=== PATIENT | female | born 1950 | race American Indian/Alaskan Native ===

== ENCOUNTER 2016-11-08 12:59 | Outpatient (CLI) | payer OTHER ==
--- NOTE | 2016-11-09 09:14 | Mammography Report ---
BILATERAL MAMMOGRAM with CAD: HISTORY: Cancer screening. Comparison study is dated September 23, 2013. FINDINGS: The breast tissue is heterogeneously dense, which could obscure detection of small masses (approximately 50%-75% glandular). No mass, distortion, suspicious calcification, or skin change is seen. IMPRESSION: Negative mammogram. There is no mammographic evidence of malignancy. RECOMMENDATION: Follow-up per ACS guidelines. BI-RADS CATEGORY: 1 = Negative ACR BI-RADS MAMMOGRAPHIC CODES: 0 = Needs additional imaging evaluation; 1 = Negative; 2 = Benign; 3 = Probably benign; 4 = Suspicious; 5 = Malignant; 6 = Known biopsy-proven malignancy COMMENT: 1. Dense breast tissue, i.e., adenosis, fibrocystic changes, etc., may obscure an underlying neoplasm. 2. Approximately 10% of cancers are not detected with mammography. 3. A negative mammography report should not delay biopsy if a clinically suspicious mass is present. COMMENT: Patient follow-up letters are generated in [employer].
== END 2016-11-08 13:00 | disposition home or self-care (01) ==
LOC: MAMMO 12:59
PROVIDERS: ATTEND Internal Medicine
DX: Z12.31 Encounter for screening mammogram for malignant neoplasm of breast (principal)
CPT/HCPCS: 77067; G0202

== ENCOUNTER 2017-07-14 12:40 | Emergency (ER) | payer OTHER ==
[2017-07-14 14:32] LABS: Basophils % (Auto) 0.4 % (0.0-1.8); Eosinophils % (Auto) 1.1 % (0.0-4.3); Mean Corpuscular HGB Conc 32 % (30-34); Mean Corpuscular Hemoglobin 28 pg (28-32); Mean Corpuscular Volume 86 fl (79-97); Platelet Count 294 K/mm3 (140-440); Red Cell Distribution Width 13.4 % (13.2-15.2); White Blood Count 6.1 K/mm3 (4.5-11.0)
[2017-07-14 14:48] LABS: Bacteria,Urine 1+ /HPF (Negative); Bilirubin,Urine NEG (Negative); Blood,Urine SM (Negative); Ketones,Urine NEG (Negative); Leukocyte Esterase,Urine LG (Negative); Mucus,Urine 2+ /HPF; Nitrite,Urine NEG (Negative); Protein,Urine <15 mg/dL mg/dL (Negative); Urobilinogen,Urine < 2.0 mg/dL (<2.0)
[2017-07-14 14:52] LABS: Anion Gap 15 mmol/L; BUN/Creatinine Ratio 29; Blood Urea Nitrogen 20 mg/dL (7-17); Calcium 9.2 mg/dL (8.4-10.2); Carbon Dioxide 27 mmol/L (22-30); Chloride 105.7 mmol/L (98-107); Glucose 105 mg/dL (65-100); Potassium 3.8 mmol/L (3.6-5.0); Sodium 144 mmol/L (137-145)
[2017-07-14 14:56] LABS: Creatine Kinase 36 units/L (30-135); Lipase 30 units/L (13-60)
[2017-07-14 15:01] LABS: Creatine Kinase MB < 1.0 ng/mL (0.0-4.0)
[2017-07-15] MEDS ORDERED: ZOFRAN IV ONE (06:18)
[2017-07-15] MEDS ORDERED: NACL 0.9% 1000 ML 1,000 ML IV ONE (06:18)
--- NOTE | 2017-07-15 06:21 | Emergency Department Report ---
HPI - General Chief Complaint: Nausea/Vomiting/Diarrhea Time Seen by Provider: 07/15/17 06:10 - HPI HPI: Room 26 The patient is 67-year-old female presenting with a chief complaint of nausea and vomiting. The patient states for the past and she's had intractable nausea and vomiting and has been unable to keep anything down. Patient states for the past 4 days she's had some diarrhea. The patient complains of abdominal pain which she is actually vomiting. Patient claims to feel weak. Patient denies history of fever Location: Gastrointestinal system Duration: 10 days Quality: Vomiting Severity: Moderate Modifying factors: [see above] Context: [see above] Mode of transportation: Unknown ED Past Medical Hx - Past Medical History Hx Hypertension: Yes Hx Diabetes: Yes Hx Arthritis: Yes Additional medical history: ULCERS - Surgical History Additional Surgical History: HERNIA REPAIR. FIBROIDS REMOVED - Family History Family history: no significant - Social History Smoking Status: Never Smoker Substance Use Type: None - Medications Home Medications: Home Medications Medication Instructions Recorded Confirmed Last Taken Type Azithromycin [Zithromax Z-LANETTE] 250 mg PO DAILY #6 tablet 08/26/14 Unknown Rx Ondansetron [Zofran ODT TAB] 8 mg PO Q8HR #20 tab.rapdis 07/15/17 Unknown Rx Sulfamethoxazole/Trimethoprim 1 each PO BID #6 tablet 07/15/17 Unknown Rx [Bactrim DS TAB] ED Review of Systems ROS: Stated complaint: VOMITING, WEAK Other details as noted in HPI Comment: All other systems reviewed and negative Constitutional: denies: chills, fever Eyes: denies: eye pain, eye discharge, vision change ENT: denies: ear pain, throat pain Respiratory: denies: cough, shortness of breath, wheezing Cardiovascular: denies: chest pain, palpitations Endocrine: no symptoms reported Gastrointestinal: abdominal pain, nausea, vomiting, diarrhea Genitourinary: denies: urgency, dysuria, discharge Musculoskeletal: denies: back pain, joint swelling, arthralgia Skin: denies: rash, lesions Neurological: denies: headache, weakness, paresthesias Psychiatric: denies: anxiety, depression Hematological/Lymphatic: denies: easy bleeding, easy bruising Physical Exam - Physical Exam Vital Signs: Vital Signs 07/14/17 07/14/17 07/14/17 14:00 18:40 20:17 Temperature 98.6 F 98 F 98.1 F Pulse Rate 78 69 68 Respiratory 20 16 18 Rate Blood Pressure 154/91 136/77 146/84 O2 Sat by Pulse 99 99 100 Oximetry Physical Exam: GENERAL: The patient is well-developed well-nourished female lying on stretcher not appearing to be in acute distress. [] HEENT: Normocephalic. Atraumatic. Extraocular motions are intact. Patient has moist mucous membranes. NECK: Supple. Trachea midline CHEST/LUNGS: Clear to auscultation. There is no respiratory distress noted. HEART/CARDIOVASCULAR: Regular. There is no tachycardia. There is no gallop rub or murmur. ABDOMEN: Abdomen is soft, nontender. Patient has normal bowel sounds. There is no abdominal distention. SKIN: There is no rash. There is no edema. There is no diaphoresis. NEURO: The patient is awake, alert, and oriented. The patient is cooperative. The patient has normal speech MUSCULOSKELETAL: There is no evidence of acute injury. ED Course Vital Signs 07/14/17 07/14/17 07/14/17 14:00 18:40 20:17 Temperature 98.6 F 98 F 98.1 F Pulse Rate 78 69 68 Respiratory 20 16 18 Rate Blood Pressure 154/91 136/77 146/84 O2 Sat by Pulse 99 99 100 Oximetry - Reevaluation(s) Reevaluation #1: 07/15/17 08:42 Patient tolerating po ED Medical Decision Making - Lab Data Result diagrams: 07/14/17 14:21 07/14/17 14:21 Laboratory Tests 07/14/17 07/14/17 07/14/17 14:03 14:21 14:21 WBC 6.1 RBC 4.30 Hgb 12.0 Hct 37.0 MCV 86 MCH 28 MCHC 32 RDW 13.4 Plt Count 294 Lymph % (Auto) 29.9 [place] % (Auto) 9.9 H Eos % (Auto) 1.1 Baso % (Auto) 0.4 Lymph # 1.8 [place] # 0.6 Eos # 0.1 Baso # 0.0 Seg Neutrophils % 58.7 Seg Neutrophils # 3.6 Sodium 144 Potassium 3.8 Chloride 105.7 Carbon Dioxide 27 Anion Gap 15 BUN 20 H Creatinine 0.7 Estimated GFR > 60 BUN/Creatinine Ratio 29 Glucose 105 H POC Glucose 137 H Calcium 9.2 Total Creatine Kinase CK-MB (CK-2) CK-MB (CK-2) Rel Index Troponin T Lipase Urine Color Urine Turbidity Urine pH Ur Specific Lilly Urine Protein Urine Glucose (UA) Urine Ketones Urine Blood Urine Nitrite Urine Bilirubin Urine Urobilinogen Ur Leukocyte Esterase Urine WBC (Auto) Urine RBC (Auto) U Epithel Cells (Auto) Urine Bacteria (Auto) Urine Mucus Urine Yeast (Budding) 07/14/17 07/14/17 14:21 Unknown WBC RBC Hgb Hct MCV MCH MCHC RDW Plt Count Lymph % (Auto) [place] % (Auto) Eos % (Auto) Baso % (Auto) Lymph # [place] # Eos # Baso # Seg Neutrophils % Seg Neutrophils # Sodium Potassium Chloride Carbon Dioxide Anion Gap BUN Creatinine Estimated GFR BUN/Creatinine Ratio Glucose POC Glucose Calcium Total Creatine Kinase 36 CK-MB (CK-2) < 1.0 CK-MB (CK-2) Rel Index 2.7 Troponin T < 0.010 Lipase 30 Urine Color Yellow Urine Turbidity Clear Urine pH 5.0 Ur Specific Lilly 1.020 Urine Protein <15 mg/dl Urine Glucose (UA) Neg Urine Ketones Neg Urine Blood Sm Urine Nitrite Neg Urine Bilirubin Neg Urine Urobilinogen < 2.0 Ur Leukocyte Esterase Lg Urine WBC (Auto) 9.0 H Urine RBC (Auto) 11.0 U Epithel Cells (Auto) 7.0 Urine Bacteria (Auto) 1+ Urine Mucus 2+ Urine Yeast (Budding) 1+ - EKG Data -: EKG Interpreted by Me EKG shows normal: sinus rhythm Rate: normal - EKG Data When compared to previous EKG there are: previous EKG unavailable Interpretation: other (no ischemic changes seen) - Radiology Data Radiology results: report reviewed (CT abdomen and pelvis), image reviewed (CT abdomen pelvis) CT abdomen and pelvis (read by radiologist)-no acute process in the abdomen and pelvis. Hysterectomy. - Differential Diagnosis partial small bowel obstruction, gastroenteritis, pancreatitis, colitis Critical care attestation.: If time is entered above; I have spent that time in minutes in the direct care of this critically ill patient, excluding procedure time. ED Disposition Clinical Impression: Nausea & vomiting, UTI (urinary tract infection) Disposition: - TO HOME OR SELFCARE Is pt being admited?: No Does the pt Need Aspirin: No Condition: Stable Instructions: Acute Nausea and Vomiting (ED) Additional Instructions: Return to the emergency department immediately should you develop worsening symptoms, fever, inability to tolerate food or liquid or any other concerns. Prescriptions: Ondansetron [Zofran ODT TAB] 8 mg PO Q8HR #20 tab.rapdis Sulfamethoxazole/Trimethoprim [Bactrim DS TAB] 1 each PO BID #6 tablet Referrals: FLOYD PABLO JR, MD [Primary Care Provider] - 3-5 Days MORENO SMITH MD [Staff Physician] - 3-5 Days (Dr. Smith is a demand planning manager. Please follow-up with him for further evaluation) Time of Disposition: 08:43
--- NOTE | 2017-07-15 07:26 | Cat Scan Report ---
FINAL REPORT EXAM: CT ABDOMEN PELVIS W CON HISTORY: abdominal pain, intractable nausea vomiting TECHNIQUE: Routine axial imaging was obtained of the abdomen pelvis following intravenous injection of iodinated contrast. Sagittal and coronal reconstructions were obtained along with delayed imaging. FINDINGS: The lung bases are clear. There is moderate size hiatal hernia at the GE junction. The liver, gallbladder, pancreas, spleen, and adrenal glands appear normal. The kidneys enhance normally. There calcification of the abdominal aorta. The vascular structures otherwise enhance normally. The bowel loops are normal in caliber and course. The appendix appears normal. There is no evidence of free fluid or adenopathy. In the pelvis the uterus has been removed. The bladder appears normal. There are no adnexal masses. The skeletal structures do not show any acute changes. IMPRESSION: No acute process in the abdomen and pelvis. Hysterectomy.
[2017-07-15 09:10] VITALS: BP 158/89
== END 2017-07-15 08:55 | disposition home or self-care (01) ==
LOC: ED 12:40
DX: N39.0 Urinary tract infection, site not specified (principal); I10 Essential (primary) hypertension; E11.9 Type 2 diabetes mellitus without complications; M19.90 Unspecified osteoarthritis, unspecified site
CPT/HCPCS: 36415; 74177; 80048; 81001; 82550; 82553; 82962; 83690; 84484; 85025; 93005; 93010; 96361; 96374; 99284; J2405; J7030; Q9967

== ENCOUNTER 2018-01-09 09:40 | Outpatient (CLI) | payer OTHER ==
--- NOTE | 2018-01-10 12:02 | Mammography Report ---
BILATERAL DIGITAL SCREENING MAMMOGRAM with CAD: 01/09/18 09:40:00 CLINICAL: Routine screening. COMPARISON:11/08/16 FINDINGS: The breasts are heterogeneously dense, which may obscure small masses. Right asymmetries require additional imaging. Bilateral benign vascular calcifications. The left breast is negative. IMPRESSION: Right asymmetries requiring further workup. BI-RADS CATEGORY: 0 -- Additional Imaging Evaluation Required RECOMMENDATION: Recall for right lateralmedial , spot compression CC and MLO views and right breast ultrasound if needed. ACR BI-RADS MAMMOGRAPHIC CODES: 0 = Needs additional imaging evaluation; 1 = Negative; 2 = Benign; 3 = Probably benign; 4 = Suspicious; 5 = Malignant; 6 = Known biopsy-proven malignancy COMMENT: 1. Dense breast tissue, i.e., adenosis, fibrocystic changes, etc., may obscure an underlying neoplasm. 2. Approximately 10% of cancers are not detected with mammography. 3. A negative mammography report should not delay biopsy if a clinically suspicious mass is present. COMMENT: Patient follow-up letters are generated via our [employer] application.
== END 2018-01-09 09:41 | disposition home or self-care (01) ==
LOC: MAMMO 09:40
PROVIDERS: ATTEND Internal Medicine
DX: Z12.31 Encounter for screening mammogram for malignant neoplasm of breast (principal)
CPT/HCPCS: 77067

== ENCOUNTER 2018-05-21 08:54 | Emergency (ER) | payer OTHER ==
[2018-05-21 10:05] VITALS: BP 169/83
[2018-05-21] MEDS ORDERED: ZOFRAN IV ONE ×2 (11:11→12:51)
[2018-05-21] MEDS ORDERED: MORPHINE IV ONE ×2 (11:11→12:51)
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
[2018-05-21 12:10] LABS: Basophils % (Auto) 0.5 % (0.0-1.8); Eosinophils % (Auto) 0.4 % (0.0-4.3); Hematocrit 35.7 % (30.3-42.9); Hemoglobin 11.8 gm/dl (10.1-14.3); Lymphocytes # (Auto) 1.2 K/mm3 (1.2-5.4); Lymphocytes % (Auto) 17.7 % (13.4-35.0); Mean Corpuscular HGB Conc 33 % (30-34); Mean Corpuscular Hemoglobin 28 pg (28-32); Mean Corpuscular Volume 86 fl (79-97); Monocytes # (Auto) 0.5 K/mm3 (0.0-0.8); Monocytes % (Auto) 7.2 % (0.0-7.3); Platelet Count 273 K/mm3 (140-440); Red Blood Count 4.17 M/mm3 (3.65-5.03); Red Cell Distribution Width 13.5 % (13.2-15.2)
[2018-05-21 12:23] LABS: Alanine Aminotransferase 14 units/L (7-56); Albumin 3.8 g/dL (3.9-5); BUN/Creatinine Ratio 32; Blood Urea Nitrogen 19 mg/dL (7-17); Hemolysis Index 11
[2018-05-21 12:34] LABS: Bilirubin,Direct < 0.2 mg/dL (0-0.2)
--- NOTE | 2018-05-21 14:06 | Cat Scan Report ---
CT CHEST WITH CONTRAST: HISTORY: chest pain. COMPARISON: none. TECHNIQUE: Helical CT in 1.25mm intervals following IV contrast. Sagittal and coronal reformatted images. FINDINGS: Thyroid gland: Normal. Tracheobronchial tree: Normal. Esophagus: Normal. Heart: Normal. Pericardium: Normal. Mediastinum: A small hiatal hernia is identified. No mass or inflammation. Lung Mclain: Normal. Pleural Spaces: Normal. Musculoskeletal: Normal. IMPRESSION: Hiatal hernia, otherwise, unremarkable CT chest with contrast. CT ABDOMEN PELVIS WITH CONTRAST: HISTORY: Chest pain. COMPARISON: 07/15/17. TECHNIQUE: Helical CT in 1.25mm intervals following IV contrast. Sagittal and coronal reconstructions. FINDINGS: Liver: Normal. Biliary system: No evidence for cholelithiasis. The common bile duct is mildly prominent measuring 8 mm in diameter. There is suggestion of a noncalcified filling defect in the distal common bile duct which could represent a sludge ball. Please correlate with the patient's clinical presentation. Pancreas: Normal. Spleen: Normal. Kidneys/ureters/bladder: Normal. Adrenal glands: Normal. Aorta: Mild diffuse calcifications. No aneurysm or dissection. Intestines: Unremarkable given no oral contrast was administered there is mild fecal retention in the colon. Appendix: Normal. Pelvic viscera: Hysterectomy changes. The adnexa are unremarkable. Ascites: None. Adenopathy: None. Musculoskeletal: Intact. No fracture or suspicious bony lesion. IMPRESSION: No acute inflammatory process is identified. Mild dilatation of the common bile duct. Question debris or sludge in the distal common bile duct. Correlate for biliary symptoms. Mild fecal retention.
[2018-05-21] MEDS ORDERED: PERCOCET 5/325 PO ONE (15:03)
== END 2018-05-21 15:29 | disposition home or self-care (01) ==
LOC: ED 08:54
DX: S20.219A Contusion of unspecified front wall of thorax, initial encounter (principal); I10 Essential (primary) hypertension; E11.9 Type 2 diabetes mellitus without complications; M19.90 Unspecified osteoarthritis, unspecified site; V89.2XXA Person injured in unspecified motor-vehicle accident, traffic, initial encounter; Y93.89 Activity, other specified; Y92.89 Other specified places as the place of occurrence of the external cause; Y99.8 Other external cause status
CPT/HCPCS: 36415; 71260; 74177; 80048; 80074; 85025; 93005; 93010; 96374; 96375; 96376; 99284; J2270; J2405; Q9967

== ENCOUNTER 2018-06-23 11:46 | Inpatient (IN) | payer OTHER, MEDICARE ==
[2018-06-23] MEDS ORDERED: NACL 0.9% 1000 ML 1,000 ML IV ONE (12:13)
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
[2018-06-23 13:34] LABS: Basophils % (Auto) 0.4 % (0.0-1.8); Eosinophils % (Auto) 0.4 % (0.0-4.3); Hematocrit 37.2 % (30.3-42.9); Hemoglobin 12.1 gm/dl (10.1-14.3); Lymphocytes # (Auto) 1.6 K/mm3 (1.2-5.4); Lymphocytes % (Auto) 20.3 % (13.4-35.0); Mean Corpuscular HGB Conc 33 % (30-34); Mean Corpuscular Hemoglobin 28 pg (28-32); Mean Corpuscular Volume 86 fl (79-97); Monocytes # (Auto) 0.7 K/mm3 (0.0-0.8); Monocytes % (Auto) 9.3 % (0.0-7.3); Platelet Count 274 K/mm3 (140-440); Red Blood Count 4.31 M/mm3 (3.65-5.03); Red Cell Distribution Width 13.3 % (13.2-15.2)
[2018-06-23 13:42] LABS: INR 0.91 (0.87-1.13)
[2018-06-23 13:53] LABS: Alanine Aminotransferase 10 units/L (7-56); Albumin 4.1 g/dL (3.9-5); BUN/Creatinine Ratio 24; Blood Urea Nitrogen 12 mg/dL (7-17); Calcium 9.5 mg/dL (8.4-10.2); Hemolysis Index 9; Lipase 21 units/L (13-60)
[2018-06-23] MEDS ORDERED: K-DUR PO ONE (14:04)
--- NOTE | 2018-06-23 14:17 | XRay Report ---
FINAL REPORT EXAM: XR CHEST 1V AP HISTORY: c/p and sob TECHNIQUE: Single, portable chest x-ray. PRIORS: None. FINDINGS: Cardiac and mediastinal silhouette within normal limits. Lungs are normally expanded. No significant vascular congestion. Probable small calcified granuloma projects over left lung apex. No focal consolidation or apparent pneumothorax. Bony thorax grossly unremarkable. IMPRESSION: 1. No acute findings.
--- NOTE | 2018-06-23 14:28 | History and Physical Report ---
History of Present Illness Chief complaint: Im hurting History of present illness: 68 YO Female with HTN, DM, OA presents to ED for evaluation. Pt states that she has experienced Pain in her chest, nausea, vomiting, and abdominal pain over the past week with worsening symptoms over the past 2 days. Pt states that he chest pain is 5/10, substernal, nonradiating, not worsenied with exertion, or relieved with rest. Pt acknowledges shortness of breath and rapid breathing. Pt also acknowledges nausea, and multiple episodes of vomiting over the past 1 week. Pt states that her abdominal pain is 3/10, intermittent, associated with nausea, and vomiting, diffuse, and associated with suprapubic tenderness. Pt denies fever, chills, palpitations, syncope, trauma, skin rash, productive cough , unintentional weight loss, night sweats, BRBPR, productive cough, or recent ill contacts. Pt seen and evaluated in ED and found to have symptoms consistent with ACS, CHF, and PUD. Cardiology consultedin ED. GI consulted in ED. G Past History Past Medical History: arthritis, diabetes, hypertension Past Surgical History: hernia repair, Other (Fibroid Removal) Social history: single, lives with family. denies: smoking, alcohol abuse, prescription drug abuse Family history: diabetes, hypertension Medications and Allergies Allergies Allergy/AdvReac Type Severity Reaction Status Date / Time No Known Allergies Allergy Verified 05/21/18 09:31 Home Medications Medication Instructions Recorded Confirmed Last Taken Type Azithromycin [Zithromax Z-LANETTE] 250 mg PO DAILY #6 tablet 08/26/14 Unknown Rx Ondansetron [Zofran ODT TAB] 8 mg PO Q8HR #20 tab.rapdis 07/15/17 Unknown Rx Sulfamethoxazole/Trimethoprim 1 each PO BID #6 tablet 07/15/17 Unknown Rx [Bactrim DS TAB] Cyclobenzaprine [Flexeril 10mg] 10 mg PO Q12H PRN #14 tablet 05/21/18 Unknown Rx Ibuprofen [Motrin] 600 mg PO Q8H PRN #12 tablet 05/21/18 Unknown Rx Active Meds: Active Medications Sodium Chloride (Nacl 0.9% 1000 Ml) 1,000 mls @ 250 mls/hr IV ONCE ONE Stop: 06/23/18 16:12 Last Admin: 06/23/18 12:45 Dose: 250 mls/hr Review of Systems Constitutional: no weight loss, no weight gain, no fever, no chills Ears, nose, mouth and throat: no ear pain, no ear discharge, no tinnitis, no decreased hearing, no nose pain Cardiovascular: chest pain, other (rapid breathing.), no orthopnea, no edema, no syncope, no lightheadedness, no high blood pressure, no leg edema Respiratory: no cough, no cough with sputum, no excessive sputum, no hemoptysis Gastrointestinal: abdominal pain, nausea, vomiting, heartburn, indigestion, no BRBPR, no melena, no hematochezia, no loss of appetite Genitourinary Female: no pelvic pain, no flank pain, no menorrhagia, no dysuria , no urinary frequency, no urgency Rectal: no pain, no incontinence, no bleeding Musculoskeletal: no neck stiffness, no neck pain, no shooting arm pain, no arm numbness/tingling Integumentary: no rash, no pruritis, no redness, no sores, no wounds Neurological: no transient paralysis, no paralysis, no weakness, no parathesias , no numbness, no tingling, no seizures Psychiatric: no anxiety, no memory loss, no change in sleep habits, no sleep disturbances Endocrine: no cold intolerance, no heat intolerance, no polyphagia, no excessive thirst, no polydipsia, no polyuria Hematologic/Lymphatic: no easy bruising, no easy bleeding, no lymphadenopathy, no lymphedema Allergic/Immunologic: no urticaria, no allergic rhinitis, no wheezing, no persistent infections, no anaphylaxis, no gluten intolerance, no seasonal allergies Exam - Constitutional Vitals: Temp Pulse Resp BP Pulse Ox 98.5 F 82 21 158/98 100 06/23/18 12:05 06/23/18 14:15 06/23/18 14:15 06/23/18 14:15 06/23/18 13:16 General appearance: Present: mild distress, cachectic - EENT Eyes: Present: PERRL ENT: hearing intact, clear oral mucosa - Neck Neck: Present: supple, normal ROM - Respiratory Respiratory effort: normal Respiratory: bilateral: CTA - Cardiovascular Rhythm: other (tachycardia) Heart Sounds: Present: S1 & S2. Absent: rub, click - Extremities Extremities: pulses symmetrical, No edema Peripheral Pulses: within normal limits - Abdominal General gastrointestinal: Present: soft, non-tender, non-distended. Absent: hypoactive bowel sounds, absent bowel sounds, hepatomegaly Female genitourinary: Present: normal - Integumentary Integumentary: Present: clear, warm, dry - Musculoskeletal Musculoskeletal: gait normal, strength equal bilaterally - Psychiatric Psychiatric: appropriate mood/affect, intact judgment & insight - Neurologic Neurologic: CNII-XII intact, moves all extremities Results - Labs CBC & Chem 7: 06/23/18 13:16 06/23/18 13:16 Labs: Abnormal lab results 06/23/18 06/23/18 06/23/18 Range/Units 12:52 13:08 13:16 [place] % (Auto) 9.3 H (0.0-7.3) % POC ABG pH 7.595 H (7.35-7.45) POC ABG pCO2 25.2 L (35-45) POC ABG pO2 121 H (80-105) Potassium (3.6-5.0) mmol/L Creatinine (0.7-1.2) mg/dL Glucose (65-100) mg/dL POC Glucose 108 H (70-105) 06/23/18 Range/Units 13:16 [place] % (Auto) (0.0-7.3) % POC ABG pH (7.35-7.45) POC ABG pCO2 (35-45) POC ABG pO2 (80-105) Potassium 2.9 L* (3.6-5.0) mmol/L Creatinine 0.5 L (0.7-1.2) mg/dL Glucose 105 H (65-100) mg/dL POC Glucose (70-105) Assessment and Plan - Patient Problems (1) Diastolic CHF Current Visit: Yes Status: Acute Qualifiers: Heart failure chronicity: acute Qualified Code(s): I50.31 - Acute diastolic (congestive) heart failure Plan to address problem: Admit to telemetry, cardiology consulted in ED, echo, strict I/O, daily weight, bnp, chest x ray, pulse oximetry, (2) ACS (acute coronary syndrome) Current Visit: Yes Status: Acute Plan to address problem: Admit to telemetry, serial cardiac enzymes, ekg, stress test, morphine, supplemental oxygen, nitro, aspirin, (3) PUD (peptic ulcer disease) Current Visit: Yes Status: Acute Plan to address problem: GI consulted for evaluation. Endoscopy as per GI team. (4) Hypokalemia Current Visit: Yes Status: Acute Plan to address problem: repleted, repeat bmp (5) DVT prophylaxis Current Visit: Yes Status: Acute Plan to address problem: SCD to BLE while in bed.
[2018-06-23] MEDS ORDERED: BABY ASPIRIN PO ONE ×2 (15:01→23:45)
[2018-06-23] MEDS ORDERED: ZOFRAN IV ONE (15:33)
[2018-06-23 15:35] LABS: Amorphous Crystals,Urine 3+; Bacteria,Urine 1+ /HPF (Negative); Bilirubin,Urine NEG (Negative); Blood,Urine SM (Negative); Color,Urine Yellow (Yellow); Mucus,Urine FEW /HPF; Protein,Urine <15 mg/dL mg/dL (Negative); Urobilinogen,Urine < 2.0 mg/dL (<2.0)
[2018-06-23] MEDS ORDERED: ATIVAN IV PRN (16:18)
[2018-06-23] MEDS ORDERED: MORPHINE IV PRN ×2 (16:18→16:23)
[2018-06-23] MEDS ORDERED: FLEXERIL PO PRN (16:19)
[2018-06-23] MEDS ORDERED: TYLENOL PO PRN (16:23)
[2018-06-23] MEDS ORDERED: PROVENTIL IH PRN (16:23)
[2018-06-23] MEDS ORDERED: SODIUM CHLORIDE FLUSH SYRINGE 10 ML IV PRN ×2 (16:23)
[2018-06-23 17:05] LABS: Chol/HDL Ratio 2.51 %
[2018-06-23] MEDS ORDERED: ZOFRAN ONE (17:28)
[2018-06-23] MEDS ORDERED: ATIVAN ONE (17:29)
[2018-06-23] MEDS: ZOFRAN IV PRN (17:33)
[2018-06-23] MEDS: PEPCID PO SCH (23:07)
[2018-06-23] MEDS: SODIUM CHLORIDE FLUSH SYRINGE 10 ML IV SCH (23:07)
[2018-06-24] MEDS ORDERED: LEXISCAN IV ONE (11:00)
--- NOTE | 2018-06-24 11:50 | Progress Note ---
Assessment and Plan Assessment and plan: Patient is a 68 YO Female with HTN, DM, OA presents to ED for evaluation. Pt states that she has experienced Pain in her chest, nausea, vomiting, and abdominal pain over the past week with worsening symptoms over the past 2 days. Pt states that he chest pain is 5/10, substernal, nonradiating, not worsened with exertion, or relieved with rest. Pt acknowledges shortness of breath and rapid breathing. Pt also acknowledges nausea, and multiple episodes of vomiting over the past 1 week. Pt states that her abdominal pain is 3/10, intermittent, associated with nausea, and vomiting, diffuse, and associated with suprapubic tenderness. She reports she has a hx of PUD, in 2006, EGD with "an ulcer" found. She denies melena or hematemesis. No weight loss. Echo with LVEF 55% and Stress test pending. Pt denies fever, chills, palpitations, syncope, trauma , skin rash, productive cough, unintentional weight loss, night sweats, BRBPR, productive cough, or recent ill contacts. Pt seen and evaluated in ED and found to have symptoms consistent with ACS, CHF, and PUD. Peritoneal irritation PUD Atypical chest pain Hypokalemia Gallbladder disease Anxiety disorder PLAN: Supportive care Cardiology input noted, GI consult placed and discussed with the team Ultrasound of the abdomen to evaluate gallbladder Had a stress test this AM Replace electrolytes PPI DVT/GI prophy History Interval history: Patient seen and examined, no new complaints. Hospitalist Physical - Physical exam Narrative exam: VITAL SIGNS: Reviewed. GENERAL: The patient appeared well nourished and normally developed. Vital signs as documented. HEAD: No signs of head trauma. EYES: Pupils are equal. Extraocular motions intact. EARS: Hearing grossly intact. MOUTH: Oropharynx is normal. NECK: No adenopathy, no JVD. CHEST: Chest with clear breath sounds bilaterally. No wheezes, rales, or rhonchi. CARDIAC: Regular rate and rhythm. S1 and S2, without murmurs, gallops, or rubs. VASCULAR: No Edema. Peripheral pulses normal and equal in all extremities. ABDOMEN: Soft, without detectable tenderness. No sign of distention. No rebound or guarding, and no masses palpated. Bowel Sounds normal. MUSCULOSKELETAL: Good range of motion of all major joints. Extremities without clubbing, cyanosis or edema. NEUROLOGIC EXAM: Alert and oriented x 3. No focal sensory or strength deficits. Speech normal. Follows commands. PSYCHIATRIC: Mood normal. SKIN: No rash or lesions. - Constitutional Vitals: Temp Pulse Resp BP Pulse Ox 98.4 F 104 H 16 164/95 97 06/24/18 07:34 10 10:29 06/24/18 07:34 06/24/18 10:29 06/24/18 07:34 General appearance: Present: mild distress, cachectic Results - Labs CBC & Chem 7: 06/23/18 13:16 06/24/18 07:05 Labs: Laboratory Last Values WBC 7.9 K/mm3 (4.5-11.0) 06/23/18 13:16 RBC 4.31 M/mm3 (3.65-5.03) 06/23/18 13:16 Hgb 12.1 gm/dl (10.1-14.3) 06/23/18 13:16 Hct 37.2 % (30.3-42.9) 06/23/18 13:16 MCV 86 fl (79-97) 06/23/18 13:16 MCH 28 pg (28-32) 06/23/18 13:16 MCHC 33 % (30-34) 06/23/18 13:16 RDW 13.3 % (13.2-15.2) 06/23/18 13:16 Plt Count 274 K/mm3 (140-440) 06/23/18 13:16 Lymph % (Auto) 20.3 % (13.4-35.0) 06/23/18 13:16 [place] % (Auto) 9.3 % (0.0-7.3) H 06/23/18 13:16 Eos % (Auto) 0.4 % (0.0-4.3) 06/23/18 13:16 Baso % (Auto) 0.4 % (0.0-1.8) 06/23/18 13:16 Lymph # 1.6 K/mm3 (1.2-5.4) 06/23/18 13:16 [place] # 0.7 K/mm3 (0.0-0.8) 06/23/18 13:16 Eos # 0.0 K/mm3 (0.0-0.4) 06/23/18 13:16 Baso # 0.0 K/mm3 (0.0-0.1) 06/23/18 13:16 Seg Neutrophils % 69.6 % (40.0-70.0) 06/23/18 13:16 Seg Neutrophils # 5.5 K/mm3 (1.8-7.7) 06/23/18 13:16 PT 12.7 Sec. (12.2-14.9) 06/23/18 13:16 INR 0.91 (0.87-1.13) 06/23/18 13:16 APTT 25.0 Sec. (24.2-36.6) 06/23/18 13:16 D-Dimer 192.99 ng/mlDDU (0-234) 06/23/18 14:03 POC ABG pH 7.595 (7.35-7.45) H 06/23/18 13:08 POC ABG pCO2 25.2 (35-45) L 06/23/18 13:08 POC ABG pO2 121 (80-105) H 06/23/18 13:08 POC ABG HCO3 24.5 06/23/18 13:08 POC ABG Total CO2 25 06/23/18 13:08 POC ABG O2 Sat 99 06/23/18 13:08 POC ABG Base Excess 3 06/23/18 13:08 FiO2 28 % 06/23/18 13:08 Sodium 139 mmol/L (137-145) 06/23/18 13:16 Potassium 3.6 mmol/L (3.6-5.0) D 06/24/18 07:05 Chloride 101.2 mmol/L (98-107) 06/23/18 13:16 Carbon Dioxide 24 mmol/L (22-30) 06/23/18 13:16 Anion Gap 17 mmol/L 06/23/18 13:16 BUN 12 mg/dL (7-17) 06/23/18 13:16 Creatinine 0.5 mg/dL (0.7-1.2) L 06/23/18 13:16 Estimated GFR > 60 ml/min 06/23/18 13:16 BUN/Creatinine Ratio 24 % 06/23/18 13:16 Glucose 105 mg/dL (65-100) H 06/23/18 13:16 POC Glucose 108 (70-105) H 06/23/18 12:52 Lactic Acid 1.00 mmol/L (0.7-2.0) 06/23/18 13:16 Calcium 9.5 mg/dL (8.4-10.2) 06/23/18 13:16 Magnesium 1.90 mg/dL (1.7-2.3) 06/23/18 13:16 Total Bilirubin 0.60 mg/dL (0.1-1.2) 06/23/18 13:16 AST 13 units/L (5-40) 06/23/18 13:16 ALT 10 units/L (7-56) 06/23/18 13:16 Alkaline Phosphatase 67 units/L (35-129) 06/23/18 13:16 Troponin T < 0.010 ng/mL (0.00-0.029) 06/23/18 22:22 NT-Pro-B Natriuret Pep 77.30 pg/mL (0-900) 06/23/18 13:16 Total Protein 6.8 g/dL (6.3-8.2) 06/23/18 13:16 Albumin 4.1 g/dL (3.9-5) 06/23/18 13:16 Albumin/Globulin Ratio 1.5 % 06/23/18 13:16 Triglycerides 55 mg/dL (2-149) 06/23/18 16:32 Cholesterol 146 mg/dL (50-199) 06/23/18 16:32 LDL Cholesterol Direct 84 mg/dL (50-130) 06/23/18 16:32 HDL Cholesterol 58 mg/dL (40-59) 06/23/18 16:32 Cholesterol/HDL Ratio 2.51 % 06/23/18 16:32 Lipase 21 units/L (13-60) 06/23/18 13:16 Urine Color Yellow (Yellow) 06/23/18 15:12 Urine Turbidity Turbid (Clear) 06/23/18 15:12 Urine pH 8.0 (5.0-7.0) H 06/23/18 15:12 Ur Specific [place] 1.010 (1.003-1.030) 06/23/18 15:12 Urine Protein <15 mg/dl mg/dL (Negative) 06/23/18 15:12 Urine Glucose (UA) Neg mg/dL (Negative) 06/23/18 15:12 Urine Ketones Tr mg/dL (Negative) 06/23/18 15:12 Urine Blood Sm (Negative) 06/23/18 15:12 Urine Nitrite Neg (Negative) 06/23/18 15:12 Urine Bilirubin Neg (Negative) 06/23/18 15:12 Urine Urobilinogen < 2.0 mg/dL (<2.0) 06/23/18 15:12 Ur Leukocyte Esterase Sm (Negative) 06/23/18 15:12 Urine WBC (Auto) 9.0 /HPF (0.0-6.0) H 06/23/18 15:12 Urine RBC (Auto) 28.0 /HPF (0.0-6.0) 06/23/18 15:12 U Epithel Cells (Auto) 4.0 /HPF (0-13.0) 06/23/18 15:12 Urine Bacteria (Auto) 1+ /HPF (Negative) 06/23/18 15:12 Amorphous Crystals 3+ 06/23/18 15:12 Urine Mucus Few /HPF 06/23/18 15:12
[2018-06-24] MEDS ORDERED: APRESOLINE IV PRN (11:51)
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
[2018-06-24] MEDS: PEPCID PO SCH ×2 (13:03→21:25)
[2018-06-24] MEDS: SODIUM CHLORIDE FLUSH SYRINGE 10 ML IV SCH ×2 (13:04→21:25)
--- NOTE | 2018-06-24 14:19 | Consultation ---
History of Present Illness Consult date: 06/24/18 Consult reason: shortness of breath History of present illness: The patient is a 68-year-old woman who is a poor historian, due to language barrier. The history from the chart suggests a chronic history of abdominal pain, which has been getting worse recently, prompting her presentation to the emergency room. There is nausea and vomiting, but no diarrhea or constipation. During the review of systems in the hospital, she did reply affirmatively to shortness of breath prompting a recommendation for cardiac workup. EKG was normal sinus rhythm, normal ECG. Echocardiogram was normal left ventricle systolic function, ejection fraction 55%. She also underwent a pharmacologic stress test with myocardial perfusion imaging ordered by the medical team. The perfusion study was normal. Past History Past Medical History: arthritis, diabetes, hypertension Past Surgical History: hernia repair, Other (Fibroid Removal) Social history: single, lives with family. denies: smoking, alcohol abuse, prescription drug abuse Family history: diabetes, hypertension Medications and Allergies Allergies Allergy/AdvReac Type Severity Reaction Status Date / Time No Known Allergies Allergy Verified 05/21/18 09:31 Home Medications Medication Instructions Recorded Confirmed Last Taken Type Ondansetron [Zofran ODT TAB] 8 mg PO Q8HR #20 tab.rapdis 07/15/17 06/24/18 Unknown Rx Sulfamethoxazole/Trimethoprim 1 each PO BID #6 tablet 07/15/17 06/24/18 Unknown Rx [Bactrim DS TAB] Cyclobenzaprine [Flexeril 10mg] 10 mg PO Q12H PRN #14 tablet 05/21/18 06/24/18 Unknown Rx Ibuprofen [Motrin] 600 mg PO Q8H PRN #12 tablet 05/21/18 06/24/18 Unknown Rx Active Meds: Active Medications Acetaminophen (Tylenol) 650 mg PO Q4H PRN PRN Reason: Pain MILD(1-3)/Fever >100.5/REDD Albuterol (Proventil) 2.5 mg IH Q4HRT PRN PRN Reason: Shortness Of Breath Cyclobenzaprine HCl (Flexeril) 10 mg PO Q12H PRN PRN Reason: Spasms Famotidine (Pepcid) 20 mg PO BID PAUL Last Admin: 06/24/18 13:03 Dose: 20 mg Hydralazine HCl (Apresoline) 10 mg IV Q4HR PRN PRN Reason: Hypertension Lorazepam (Ativan) 1 mg IV Q8H PRN PRN Reason: Agitation Last Admin: 06/23/18 17:33 Dose: 1 mg Morphine Sulfate (Morphine) 2 mg IV Q4H PRN PRN Reason: Pain, Moderate (4-6) Ondansetron HCl (Zofran) 4 mg IV Q8H PRN PRN Reason: Nausea And Vomiting Last Admin: 06/23/18 17:33 Dose: 4 mg Sodium Chloride (Sodium Chloride Flush Syringe 10 Ml) 10 ml IV BID PAUL Last Admin: 06/24/18 13:04 Dose: 10 ml Sodium Chloride (Sodium Chloride Flush Syringe 10 Ml) 10 ml IV PRN PRN PRN Reason: LINE FLUSH Review of Systems Cardiovascular: shortness of breath, no chest pain, no orthopnea, no palpitations, no rapid/irregular heart beat, no edema, no syncope, no lightheadedness Physical Examination Vital Signs Temp Pulse Resp BP Pulse Ox 98.5 F 78 26 H 151/103 100 06/23/18 12:05 06/23/18 12:05 06/23/18 12:05 06/23/18 12:05 06/23/18 12:05 General appearance: no acute distress, other (anxious) HEENT: Positive: PERRL Neck: Positive: neck supple Cardiac: Positive: Reg Rate and Rhythm Lungs: Positive: clear to auscultation Neuro: Positive: Grossly Intact Abdomen: Positive: Soft Female genitourinary: deferred Skin: Positive: Clear Extremities: Absent: edema Results 06/23/18 13:16 06/24/18 07:05 Lipids 06/23/18 Range/Units 16:32 Triglycerides 55 (2-149) mg/dL Cholesterol 146 (50-199) mg/dL HDL Cholesterol 58 (40-59) mg/dL Cholesterol/HDL Ratio 2.51 % Comprehensive Metabolic Panel 06/24/18 Range/Units 07:05 Potassium 3.6 D (3.6-5.0) mmol/L EKG interpretations - Telemetry EKG Rhythm: Sinus Rhythm Assessment and Plan - Patient Problems (1) Dyspnea Current Visit: Yes Status: Acute Qualifiers: Dyspnea type: shortness of breath Qualified Code(s): R06.02 - Shortness of breath; R06.00 - Dyspnea, unspecified; R06.01 - Orthopnea Plan to address problem: Episodes of dyspnea are nonspecific, possibly related to bouts of anxiety. Cardiac workup with echocardiogram, serial ECGs and a pharmacologic stress test with thallium imaging, all normal. No further cardiac workup is indicated.
[2018-06-24] MEDS: ZOFRAN IV PRN (21:25)
--- NOTE | 2018-06-25 01:03 | Treadmill Report ---
THALLIUM STRESS TEST REPORT LEFT VENTRICLE: Left ventricular chamber size is within normal spread. Perfusion study demonstrates homogeneous uptake of the tracer in all segments, no significant perfusion defects identified. Gated analysis demonstrates normal left ventricular systolic function, ejection fraction greater than 70%. CONCLUSION: Normal myocardial perfusion study. JOB# [id number] CA/NTS
[2018-06-25] MEDS: PEPCID PO SCH ×2 (08:00→21:35)
[2018-06-25] MEDS: SODIUM CHLORIDE FLUSH SYRINGE 10 ML IV SCH ×2 (10:00→21:36)
--- NOTE | 2018-06-25 12:59 | Progress Note ---
Assessment and Plan Abdominal pain Shortness of breath Chest pain echocardiogram: normal left ventricle systolic function, ejection fraction 55 %. normal MPI this presentation. Conservative cardiac management. Subjective Date of service: 06/25/18 Interval history: Patient is resting in bed comfortably. No cardiac events overnight. For planned EGD today. Objective Vital Signs Temp Pulse Resp BP Pulse Ox 06/25/18 12:37 79 18 144/90 98 06/25/18 10:00 99 06/25/18 07:22 79 16 136/89 99 06/25/18 05:04 98.2 F 69 18 146/83 100 06/25/18 00:12 97.9 F 88 18 148/87 99 06/24/18 21:29 20 06/24/18 21:01 100 06/24/18 20:57 96 H 06/24/18 19:34 98.2 F 95 H 18 126/87 99 06/24/18 15:33 98.5 F 84 16 118/84 99 - Physical Examination General: No Apparent Distress HEENT: Positive: PERRL Cardiac: Positive: Reg Rate and Rhythm Extremities: Absent: edema
[2018-06-25] MEDS ORDERED: NACL 0.9% 1000 ML 1,000 ML IV SCH (14:00)
--- NOTE | 2018-06-25 14:30 | Anesthesia Consultation ---
Anesthesia Consult and Med Hx Date of service: 06/25/18 - Airway Anesthetic Teeth Evaluation: Good ROM Head & Neck: Inadequate (inter pain) Mental/Hyoid Distance: Adequate Mallampati Class: Class II Intubation Access Assessment: Probably Good - Pulmonary Exam CTA: Yes - Cardiac Exam Cardiac Exam: RRR - Pre-Operative Health Status ASA Pre-Surgery Classification: ASA2 Proposed Anesthetic Plan: MAC - Pre-Anesthesia Comment Pre-Anesthesia Comments: normal stress test. EF 55% - Pulmonary SOB: Yes - Cardiovascular System Hx Hypertension: Yes - Gastrointestinal Hx Gastroesophageal Reflux Disease: Yes - Endocrine Hx Non-Insulin Dependent Diabetes: Yes (no meds)
--- NOTE | 2018-06-25 14:31 | Anesthesia Day of Surgery ---
Anesthesia Day of Surgery - Day of Surgery Patient Examined: Yes Patient H&P Reviewed: Yes Patient is NPO: Yes
[2018-06-25] MEDS ORDERED: DIPRIVAN 10 MG/ML IV ONE ×2 (14:41)
--- NOTE | 2018-06-25 15:33 | Post Operative Note ---
Pre-op diagnosis: Abdominal pain Post-op diagnosis: other (Erosive antritis, s/p fundoplication anatomy) Findings: 1. Normal esophagus, with Z-line at 35 cm. 2. 4 cm hiatal hernia, with hiatus at 39 cm. 3. Erosive gastritis involving antrum, biopsied. 4. Otherwise normal stomach, with fundoplication deformity of gastric cardia. 5. Normal duodenum and bulb. Procedure: EGD with biopsy Anesthesia: MAC Surgeon: ISRAEL TOMLINSON Estimated blood loss: minimal Pathology: list (1. Gastric antrum) Specimen disposition: to lab Condition: stable Disposition: floor (Advance diet as tolerated)
--- NOTE | 2018-06-25 15:56 | Progress Note ---
Assessment and Plan Assessment and plan: Patient is a 68 yo from [facility] (speaks and understands [place] Islander) with HTN, DM, OA, PUD, HH with fundiplication who presents with CP, nausea, vomiting, and abdominal pains PUD, erosive esophagitis: treat with ppi Atypical chest pain, GERD related, no ACS on admission, stress test unremarkable Hypokalemia: recheck in am Gallbladder disease in the differential but normal labs: ordered u/s abd Anxiety disorder UTI, poa: start iv levaquin, get urine culture Dispostion: continue inpatient care, if she tolerated diet without n/v and gallbladder u/s negative then d/c with GI followup tomorrow EGD post-op note, d/w Dr. Mccurdy Pre-op diagnosis: Abdominal pain Post-op diagnosis: other (Erosive antritis, s/p fundoplication anatomy) Findings: 1. Normal esophagus, with Z-line at 35 cm. 2. 4 cm hiatal hernia, with hiatus at 39 cm. 3. Erosive gastritis involving antrum, biopsied. 4. Otherwise normal stomach, with fundoplication deformity of gastric cardia. 5. Normal duodenum and bulb. Procedure: EGD with biopsy Anesthesia: MAC Surgeon: ISRAEL MCCURDY Estimated blood loss: minimal Pathology: list (1. Gastric antrum) Specimen disposition: to lab Condition: stable Disposition: floor (Advance diet as tolerated) History Interval history: Patient was seen and examined. Follow-up on current diagnosis of cp, resolved but still with nausea. Overnight uneventful. Patient denies any shortness breath , or severe headaches. Imaging, nursing note, chart, labs and old chart reviewed. Discussed with patient. Hospitalist Physical - Physical exam Narrative exam: GEN: WDWN, NAD, Awake, Alert, Orientated x3 NECK: supple, no adenopathy, no thyromegaly, no JVD CVS/HEART: RRR, normal S1S2, pulses present bilaterally CHEST/LUNGS: CTA B, Symmetrical chest expansion, good air entry bilaterally GI/Abdomen: soft, NTND, good bowel sounds, no guarding or rebound /Bladder: no suprapubic tenderness, no CVA or paraspinal tenderness EXT/Skin: no c/c/e, no obvious rash MSK: FROM x 4 Neuro: CN 2-12 grossly intact, no new focal deficits Psych: calm - Constitutional Vitals: Temp Pulse Resp BP Pulse Ox 98.7 F 78 12 147/87 98 06/25/18 14:06 06/25/18 14:06 06/25/18 14:06 06/25/18 14:06 06/25/18 14:06 General appearance: Absent: mild distress Results - Labs CBC & Chem 7: 06/23/18 13:16 06/24/18 07:05 Labs: Laboratory Last Values WBC 7.9 K/mm3 (4.5-11.0) 06/23/18 13:16 RBC 4.31 M/mm3 (3.65-5.03) 06/23/18 13:16 Hgb 12.1 gm/dl (10.1-14.3) 06/23/18 13:16 Hct 37.2 % (30.3-42.9) 06/23/18 13:16 MCV 86 fl (79-97) 06/23/18 13:16 MCH 28 pg (28-32) 06/23/18 13:16 MCHC 33 % (30-34) 06/23/18 13:16 RDW 13.3 % (13.2-15.2) 06/23/18 13:16 Plt Count 274 K/mm3 (140-440) 06/23/18 13:16 Lymph % (Auto) 20.3 % (13.4-35.0) 06/23/18 13:16 [place] % (Auto) 9.3 % (0.0-7.3) H 06/23/18 13:16 Eos % (Auto) 0.4 % (0.0-4.3) 06/23/18 13:16 Baso % (Auto) 0.4 % (0.0-1.8) 06/23/18 13:16 Lymph # 1.6 K/mm3 (1.2-5.4) 06/23/18 13:16 [place] # 0.7 K/mm3 (0.0-0.8) 06/23/18 13:16 Eos # 0.0 K/mm3 (0.0-0.4) 06/23/18 13:16 Baso # 0.0 K/mm3 (0.0-0.1) 06/23/18 13:16 Seg Neutrophils % 69.6 % (40.0-70.0) 06/23/18 13:16 Seg Neutrophils # 5.5 K/mm3 (1.8-7.7) 06/23/18 13:16 PT 12.7 Sec. (12.2-14.9) 06/23/18 13:16 INR 0.91 (0.87-1.13) 06/23/18 13:16 APTT 25.0 Sec. (24.2-36.6) 06/23/18 13:16 D-Dimer 192.99 ng/mlDDU (0-234) 06/23/18 14:03 POC ABG pH 7.595 (7.35-7.45) H 06/23/18 13:08 POC ABG pCO2 25.2 (35-45) L 06/23/18 13:08 POC ABG pO2 121 (80-105) H 06/23/18 13:08 POC ABG HCO3 24.5 06/23/18 13:08 POC ABG Total CO2 25 06/23/18 13:08 POC ABG O2 Sat 99 06/23/18 13:08 POC ABG Base Excess 3 06/23/18 13:08 FiO2 28 % 06/23/18 13:08 Sodium 139 mmol/L (137-145) 06/23/18 13:16 Potassium 3.6 mmol/L (3.6-5.0) D 06/24/18 07:05 Chloride 101.2 mmol/L (98-107) 06/23/18 13:16 Carbon Dioxide 24 mmol/L (22-30) 06/23/18 13:16 Anion Gap 17 mmol/L 06/23/18 13:16 BUN 12 mg/dL (7-17) 06/23/18 13:16 Creatinine 0.5 mg/dL (0.7-1.2) L 06/23/18 13:16 Estimated GFR > 60 ml/min 06/23/18 13:16 BUN/Creatinine Ratio 24 % 06/23/18 13:16 Glucose 105 mg/dL (65-100) H 06/23/18 13:16 POC Glucose 83 (70-105) 06/25/18 11:59 Lactic Acid 1.00 mmol/L (0.7-2.0) 06/23/18 13:16 Calcium 9.5 mg/dL (8.4-10.2) 06/23/18 13:16 Magnesium 1.90 mg/dL (1.7-2.3) 06/23/18 13:16 Total Bilirubin 0.60 mg/dL (0.1-1.2) 06/23/18 13:16 AST 13 units/L (5-40) 06/23/18 13:16 ALT 10 units/L (7-56) 06/23/18 13:16 Alkaline Phosphatase 67 units/L (35-129) 06/23/18 13:16 Troponin T < 0.010 ng/mL (0.00-0.029) 06/23/18 22:22 NT-Pro-B Natriuret Pep 77.30 pg/mL (0-900) 06/23/18 13:16 Total Protein 6.8 g/dL (6.3-8.2) 06/23/18 13:16 Albumin 4.1 g/dL (3.9-5) 06/23/18 13:16 Albumin/Globulin Ratio 1.5 % 06/23/18 13:16 Triglycerides 55 mg/dL (2-149) 06/23/18 16:32 Cholesterol 146 mg/dL (50-199) 06/23/18 16:32 LDL Cholesterol Direct 84 mg/dL (50-130) 06/23/18 16:32 HDL Cholesterol 58 mg/dL (40-59) 06/23/18 16:32 Cholesterol/HDL Ratio 2.51 % 06/23/18 16:32 Lipase 21 units/L (13-60) 06/23/18 13:16 Urine Color Yellow (Yellow) 06/23/18 15:12 Urine Turbidity Turbid (Clear) 06/23/18 15:12 Urine pH 8.0 (5.0-7.0) H 06/23/18 15:12 Ur Specific [place] 1.010 (1.003-1.030) 06/23/18 15:12 Urine Protein <15 mg/dl mg/dL (Negative) 06/23/18 15:12 Urine Glucose (UA) Neg mg/dL (Negative) 06/23/18 15:12 Urine Ketones Tr mg/dL (Negative) 06/23/18 15:12 Urine Blood Sm (Negative) 06/23/18 15:12 Urine Nitrite Neg (Negative) 06/23/18 15:12 Urine Bilirubin Neg (Negative) 06/23/18 15:12 Urine Urobilinogen < 2.0 mg/dL (<2.0) 06/23/18 15:12 Ur Leukocyte Esterase Sm (Negative) 06/23/18 15:12 Urine WBC (Auto) 9.0 /HPF (0.0-6.0) H 06/23/18 15:12 Urine RBC (Auto) 28.0 /HPF (0.0-6.0) 06/23/18 15:12 U Epithel Cells (Auto) 4.0 /HPF (0-13.0) 06/23/18 15:12 Urine Bacteria (Auto) 1+ /HPF (Negative) 06/23/18 15:12 Amorphous Crystals 3+ 06/23/18 15:12 Urine Mucus Few /HPF 06/23/18 15:12
--- NOTE | 2018-06-25 17:22 | Operative Report ---
PROCEDURE: Upper endoscopy. PREOPERATIVE DIAGNOSES: Epigastric pain, nausea, and vomiting. POSTOPERATIVE DIAGNOSES: Erosive gastritis and post-fundoplication anatomy. SEDATION: MAC by Anesthesia. HISTORY: The patient is a 68-year-old woman with intermittent vomiting ever since hernia repair in 2004. Symptoms worse over the last week along with epigastric burning discomfort. Procedure, indications, risks, and benefits were explained and consent was obtained. The patient was placed in left lateral decubitus position and sedated. [employer] video upper scope was passed through the mouth and oropharynx into the descending duodenum. Scope was then gradually withdrawn with close inspection of the mucosa. FINDINGS: 1. Normal appearing esophagus with sharp Z-line located at 35 cm from the incisors. 2. Hiatal hernia extending from 35-39 cm from the incisors. 3. Retroflex examination reveals fundoplication deformity of the gastric cardia and fundus. 4. Erosive gastritis involving the antrum with shallow white based ulcers. Biopsies obtained. 5. Remainder of stomach was normal. 6. Normal appearing duodenal bulb and duodenum. The patient tolerated the procedure well without immediate complication. IMPRESSION: 1. Erosive gastritis. 2. Post-fundoplication anatomy. PLAN: 1. Follow up biopsies. 2. Proton pump inhibitors. 3. Advance diet and discharge to home if tolerated. JOB# [id number] HRC/NTS
[2018-06-25] MEDS: LEVAQUIN 500MG/100ML 500 MG/100 ML BAG IV SCH (19:03)
[2018-06-25] MEDS ORDERED: COLACE PO PRN (22:00)
[2018-06-26 05:49] LABS: Hemoglobin 11.8 gm/dl (10.1-14.3); Mean Corpuscular HGB Conc 33 % (30-34); Mean Corpuscular Hemoglobin 28 pg (28-32); Mean Corpuscular Volume 86 fl (79-97); Platelet Count 260 K/mm3 (140-440); Red Blood Count 4.18 M/mm3 (3.65-5.03)
[2018-06-26 06:07] LABS: BUN/Creatinine Ratio 18; Blood Urea Nitrogen 11 mg/dL (7-17); Hemolysis Index 3
[2018-06-26] MEDS: LEVAQUIN 500MG/100ML 500 MG/100 ML BAG IV SCH (10:24)
[2018-06-26] MEDS: PEPCID PO SCH (10:25)
[2018-06-26] MEDS: SODIUM CHLORIDE FLUSH SYRINGE 10 ML IV SCH (10:25)
--- NOTE | 2018-06-26 10:36 | Ultrasound Report ---
ULTRASOUND ABDOMEN LIMITED: TECHNIQUE: Transabdominal ultrasound with color Doppler interrogation. HISTORY: Nausea and vomiting, abdominal pain. COMPARISON: none. FINDINGS: LIVER: Normal. BILIARY SYSTEM: There is a small amount of sludge in the gallbladder. No shadowing gallstones, abnormal gallbladder distention or wall thickening. The CBD is mildly dilated at 6.5 mm but no obstructing lesion is demonstrated on ultrasound. PANCREAS: Normal. RIGHT KIDNEY: Normal. PROXIMAL AORTA: Normal. ASCITES: None. IMPRESSION: Small amount of sludge in the gallbladder. Mild dilatation of the common bile duct.
[2018-06-26 13:00] VITALS: BP 144/83
--- NOTE | 2018-06-26 14:08 | Discharge Summary ---
Providers - Providers Date of Admission: 06/23/18 16:23 Date of discharge: 06/26/18 Attending physician: HARMEET SOLANO 06/23/18 Consult to Cardiac Rehabilitation [CONS] Routine Reason For Exam: Phase I 06/23/18 17:09 Consult to Physician [CONS] Routine Comment: Consulting Provider: MIKAELA KIM Physician Instructions: Reason For Exam: peptic ulcer disease Primary care physician: LABORATORY INSPECTOR Hospitalization Condition: Stable Hospital course: Patient is a 68 yo from [facility] (speaks and understands [place]ian) with HTN, DM, OA, PUD, HH with fundiplication who presents with CP, nausea, vomiting, and abdominal pains PUD, erosive esophagitis: treat with ppi, ordered u/s abd and d/w results with Dr. Mccurdy, LFTs normal Atypical chest pain, GERD related, no ACS on admission, stress test unremarkable Hypokalemia: recheck in am Anxiety disorder UTI, poa: start iv levaquin, get urine culture Dispostion: continue inpatient care, if she tolerated diet without n/v and gallbladder u/s negative then d/c with GI followup tomorrow EGD post-op note, d/w Dr. Mccurdy Pre-op diagnosis: Abdominal pain Post-op diagnosis: other (Erosive antritis, s/p fundoplication anatomy) Findings: 1. Normal esophagus, with Z-line at 35 cm. 2. 4 cm hiatal hernia, with hiatus at 39 cm. 3. Erosive gastritis involving antrum, biopsied. 4. Otherwise normal stomach, with fundoplication deformity of gastric cardia. 5. Normal duodenum and bulb. Procedure: EGD with biopsy Anesthesia: MAC Surgeon: ISRAEL MCCURDY Estimated blood loss: minimal Pathology: list (1. Gastric antrum) Specimen disposition: to lab Condition: stable Disposition: floor (Advance diet as tolerated) Disposition: TO HOME OR SELFCARE Time spent for discharge: 32 minutes Core Measure Documentation - Palliative Care Palliative Care/ Comfort Measures: Not Applicable - Core Measures Any of the following diagnoses?: none - VTE Discharge Requirements Deep Vein Thrombosis/Pulmonary Embolism Present on Admission: No Has pt received <5 days of overlap therapy or INR<2.0: No Anticoagulant overlap therapy prescribed at discharge: No Contraindication No Overlap Therapy order at DC: Not Indicated Exam - Physical Exam Narrative exam: GEN: WDWN, NAD, Awake, Alert, Orientated x3 NECK: supple, no adenopathy, no thyromegaly, no JVD CVS/HEART: RRR, normal S1S2, pulses present bilaterally CHEST/LUNGS: CTA B, Symmetrical chest expansion, good air entry bilaterally GI/Abdomen: soft, NTND, good bowel sounds, no guarding or rebound /Bladder: no suprapubic tenderness, no CVA or paraspinal tenderness EXT/Skin: no c/c/e, no obvious rash MSK: FROM x 4 Neuro: CN 2-12 grossly intact, no new focal deficits Psych: calm - Constitutional Vitals: Temp Pulse Resp BP Pulse Ox 98.2 F 78 18 144/83 100 06/26/18 12:59 06/26/18 12:59 06/26/18 12:59 06/26/18 12:59 06/26/18 12:59 Plan Activity: other (no strenous activity unless cleared by PCP) Diet: advance as tolerated Follow up with: PRIMARY CAREMD [Primary Care Provider] - 7 Days ISRAEL MCCURDY MD [Staff Physician] - 7 Days Prescriptions: levoFLOXacin [Levaquin TAB] 500 mg PO QDAY #4 tablet Ondansetron [Zofran ODT TAB] 8 mg PO Q8HR #20 tab.rapdis Pantoprazole [Protonix] 40 mg PO QDAY #30 tablet
--- NOTE | 2018-06-27 10:07 | Query-Infection ---
Deamicheal Haas___Wise Date:__06/27/2018 Solar Panel Installation Supervisor/CDS:__Lilly Phone#:__[phone] Exercise your independent professional judgment when responding to this query. Questions asked do not imply a particular answer is desired or expected. We greatly appreciate your clarification on this issue. Clinical Documentation States: Patient is a 68 yo who presents with CP, nausea, vomiting, and abdominal pains. The Hospitalist (Dr. Blackwell) progress note on 06/24/2018 stated "Peritoneal irritation." The Discharge summary stated "UTI, poa: start iv levaquin, get urine culture." Clinical findings show: (please check applicable parameters) TN (06/23): 93 RR (06/23): 41 Infection, known /suspected, with some of the following indicators; Specify the infection: 3 General parameters [ ] Fever (core temp >38.30C or 100.40F) [ ] Hypothermia (core temp <36C) [X ] Heart rate >90 bpm [X ] Tachypnea: >20 bpm or pCO2 < 32 mmHg [ ] Altered mental status [ ] Significant edema / +ve fluid balance (>20 ml/kg 24 h) [ ] Hyperglycemia (Bl. glucose >110 mg/dl) w/o diabetes Inflammatory parameters [ ] Leukocytosis (white blood cell count >12,000/l) [ ] Leukopenia (white blood cell count <4,000/l) [ ] Bandemia (immature WBC > 10%) [ ] Leucocyte Left Shift [ ] Plasma procalcitonin>2 SD above the normal value Hemodynamic and tissue perfusion parameters [ ] Arterial hypotension(SBP <90 mmHg, MAP <70 mmHg,or a SBP drop >40 mmHg in adults) [ ] Hyperlactatemia (>3 mmol/l) [ ] Anion Gap (> 11mEG/l) [ ] Decreased capillary refill or mottling Organ dysfunction parameters [ ] Arterial hypoxemia (PaO2/FIO2 <300) [ ] Creatinine increase =0.5 mg/dl [ ] Acute oliguria (urine output <0.5 ml | kg |h or 45 mM/l for at least 2 hrs) [ ] Coagulation abnormalities (INR >1.5 or activated partial thromboplastin time >60 s) [ ] Ileus (absent james wel sounds) [ ] Thrombocytopenia (platelet count <100,000/l) [ ] Hyperbilirubinemia (plasma total bilirubin >4 mg/dl) According to the clinical indications above, can Bacteremia be further specified? If so, please indicate below and in your Progress Notes and/ or Discharge Summary. Indicate if the condition was present on admission. PHYSICIAN RESPONSE: [ x] Sepsis [ ] Severe Sepsis [ ] Septic Shock [ ] Septicemia [ ] Sepsis now resolved [ ] SIRS due to non-infectious cause with organ dysfunction [ ] SIRS due to non-infectious cause without organ dysfunction [ ] Other: [ ] Comment/Explanation: Present on Admission: [ x] Yes (Y) [ ] Clinically undeterminable (W) [ ] No (N) [ ] Ruled Out Please also document response in your Progress Notes and/or Discharge Summary and indicate if the condition was present on admission Notes: SIRS/ SIRS WITH ORGAN DYSFUNCTION Systemic inflammatory response syndrome (SIRS) generally refers to the systemic response to trauma/levy or other insult such as Acute Myocardial Infarction, Acute Pancreatitis, and Major Surgery with symptoms including fever, tachycardia , tachypnea, and leukocytosis (1). BACTEREMIA Presence of viable bacteria in the circulating blood (2). This term is reserved for patients that do not manifest above SIRS response. SEPTICEMIA Generally refers to a systemic disease associated with the presence of pathological microorganisms or toxins in the blood, which can include bacteria, viruses, fungi or other organisms (1). SEPSIS Generally refers to SIRS due infection (1). SEVERE SEPSIS Generally refers to sepsis associated with acute organ dysfunction (1). SEPTIC SHOCK Generally refers to circulatory failure associated with severe sepsis (2), and defined as hypotension or hypoperfusion despite adequate fluid resuscitation (1 hour) (3). REFERENCES: 1. [place] [employer]/Society of Critical Care Medicine Consensus Conference. Definitions for sepsis and organ failure and guidelines for the use of innovative therapies in sepsis. Critical Care Med 1992;20:864 - 74. 2. Andres cash MM, Jennifer MP, Jasen COURTNEY, Lui E, Genaro D, Landry D, Aldair J, Nelli LAMBERT , Madi TALAVERA, Gumaro G; International Sepsis Definitions Conference. 2001 SCCM/ESICM/ACCP/ATS/SIS International Sepsis Definitions Conference. Intensive Care Med. 2002;29(4):530-8. Epub 2002Dec 12. Review. PubMed PMID:[id number] 3. ICD-9-CM Official Guidelines for Coding and Reporting 4. Medscape Drugs, Diseases and Procedures references 5. [employer] Textbook of Internal Medicine. 18th Edition MTDD
== END 2018-06-26 17:30 | disposition home or self-care (01) | DRG 871 ==
LOC: ED 11:46 → 4A 16:23
PROVIDERS: ADMIT Internal Medicine; ATTEND Internal Medicine
PROC: 0DB68ZX Excision of Stomach, Via Natural or Artificial Opening Endoscopic, Diagnostic (ICD-10-PCS; principal; 2018-06-25)
DX: A41.9 Sepsis, unspecified organism (principal); I50.31 Acute diastolic (congestive) heart failure; K65.9 Peritonitis, unspecified; N39.0 Urinary tract infection, site not specified; E87.3 Alkalosis; K21.0 Gastro-esophageal reflux disease with esophagitis; K27.9 Peptic ulcer, site unspecified, unspecified as acute or chronic, without hemorrhage or perforation; I10 Essential (primary) hypertension; E11.9 Type 2 diabetes mellitus without complications; M19.90 Unspecified osteoarthritis, unspecified site; E87.6 Hypokalemia; K44.9 Diaphragmatic hernia without obstruction or gangrene; K29.70 Gastritis, unspecified, without bleeding; K82.8 Other specified diseases of gallbladder; F41.9 Anxiety disorder, unspecified; Z83.3 Family history of diabetes mellitus; Z82.49 Family history of ischemic heart disease and other diseases of the circulatory system; Z79.899 Other long term (current) drug therapy; I11.0 Hypertensive heart disease with heart failure; K29.00 Acute gastritis without bleeding
CPT/HCPCS: 36415; 71045; 76705; 78452; 80048; 80053; 80061; 81001; 82140; 82803; 82962; 83690; 83735; 83880; 84132; 84484; 85025; 85027; 85379; 85610; 85730; 87040; 87086; 88305; 88342; 93005; 93010; 93017; 93306; 96374; 96375; 96376; 99285; A9502; J1956; J2060; J2270; J2405; J2704; J2785; J7030